=== PATIENT | female | born 1990 | race Caucasian/White ===

== ENCOUNTER → 2016-08-03 | Day surgery (SDC) | payer OTHER ==
[2016-08-03 08:35] LABS: HCT 38.6 % (37.0-47.0); MCH 29.7 pg (25.0-31.0); MCHC 36.3 g/dL (32.0-36.0); MPV 9.8 fL (6.0-9.5); RBC 4.71 M/uL (4.20-5.40); RDW 13.6 % (11.5-14.0); WBC 9.9 K/uL (4.0-10.5)
== END | disposition home or self-care (01) ==
LOC: FAS 07:48
PROVIDERS: Obstetrics & Gynecology
DX: O02.1 Missed abortion (principal); N90.89 Other specified noninflammatory disorders of vulva and perineum; K21.9 Gastro-esophageal reflux disease without esophagitis; Z87.891 Personal history of nicotine dependence; Z83.3 Family history of diabetes mellitus; Z80.6 Family history of leukemia; Z98.890 Other specified postprocedural states
CPT/HCPCS: 36415; 84702; 86850; 86900; 86901; 88305; J1100; J1170; J1885; J2405; J2704; J3010